=== PATIENT | female | born 1985 | race Caucasian/White ===

== ENCOUNTER 2022-07-12 14:39 | Emergency (ER) | payer MEDICAID ==
[~2022-07-12] VITALS: Ht 157.5 cm; Wt 65.0 kg
[2022-07-12 14:46] VITALS: BP 106/84
[2022-07-12] MEDS ORDERED: CEPH-585 PO ×2 (15:54→15:57)
[2022-07-12] MEDS ORDERED: cephalexin 250mg capsule PO ONE (16:00)
== END 2022-07-12 16:13 | disposition home or self-care (01) ==
LOC: ER 14:40
DX: L02.415 Cutaneous abscess of right lower limb (principal); M25.551 Pain in right hip; Z72.89 Other problems related to lifestyle; Z56.0 Unemployment, unspecified; Z79.2 Long term (current) use of antibiotics
CPT/HCPCS: 99283

== ENCOUNTER 2022-07-31 10:08 | Emergency (ER) | payer MEDICAID ==
[~2022-07-31] VITALS: Ht 158.8 cm; Wt 67.4 kg
[~2022-07-31 10:08] MED LIST: CEPH-585 PO
[2022-07-31 10:29] VITALS: BP 123/96
[2022-07-31 11:47] LABS: CLARITY,URINE CLEAR (Clear); COLOR,URINE YELLOW (Yellow); GLUCOSE, URINE NEGATIVE (Neg); KETONES,URINE NEGATIVE (Neg); LEUKOCYTE ESTERASE ,URINE TRACE (Neg); NITRITES, URINE NEGATIVE (Neg); OCCULT BLOOD,URINE NEGATIVE (Neg); PROTEIN,URINE NEGATIVE (Neg); URINE HCG NEGATIVE (NEG); UROBILINOGEN,URINE 0.2 E.U/dL (0.2-1.0)
[2022-07-31 11:51] LABS: UA COLLECTION TYPE CLN CATCH MIDSTREAM
[2022-07-31 11:52] LABS: RBC,URINE NONE SEEN /HPF (0-2); WBC,URINE 0-4 /HPF (0-4)
[2022-07-31 11:53] LABS: BACTERIA,URINE FEW /HPF (Neg); MUCUS STRANDS NONE SEEN /LPF (Neg); SQUAMOUS EPITHELIAL CELL,UR FEW /LPF (FEW)
[2022-07-31 12:00] LABS: BASOPHILS % (AUTO) 0.8 % (0-1); EOSINOPHILS # (AUTO) 0.1 X10'3 (0-0.9); EOSINOPHILS % (AUTO) 2.8 % (0-6); HEMATOCRIT 40.7 % (35.0-45.0); HEMOGLOBIN 13.6 g/dl (12.0-16.0); LYMPHOCYTES # (AUTO) 2.1 X10'3 (1.1-4.8); LYMPHOCYTES % (AUTO) 38.9 % (21-51); MEAN CORPUSCULAR HEMOGLOBIN 29.1 PG (27.0-31.0); MEAN CORPUSCULAR HGB CONC 33.3 g/dL (33.0-36.5); MEAN CORPUSCULAR VOLUME 87.6 FL (78-98); MEAN PLATELET VOLUME 6.4 FL (7.4-10.4); MONOCYTES # (AUTO) 0.4 X10'3 (0-0.9); MONOCYTES % (AUTO) 6.8 % (2-12); NEUTROPHILS # (AUTO) 2.7 X10'3 (1.8-7.7); NEUTROPHILS % (AUTO) 50.7 % (42-75); PLATELET COUNT 323 X10'3 (140-440); RED BLOOD COUNT 4.65 X10'6 (4.20-5.60); RED CELL DISTRIBUTION WIDTH 13.5 % (11.5-14.5); WHITE BLOOD COUNT 5.4 X10'3 (4.5-11.0)
[2022-07-31 12:10] LABS: ALANINE AMINOTRANSFERASE 36 U/L (12-78); ALBUMIN 3.8 G/DL (3.4-5.0); ALKALINE PHOSPHATASE 106 IU/L (46-116); ANION GAP 5 (8-16); ASPARTATE AMINO TRANSFERASE 21 U/L (10-37); BILIRUBIN,TOTAL 0.3 MG/DL (0.1-1.0); BLOOD UREA NITROGEN 14 MG/DL (7-18); BUN/CREATININE RATIO 21.2 (6.6-38.0); CALCIUM 9.2 MG/DL (8.5-10.1); CHLORIDE 104 MMOL/L (99-107); CREATININE 0.66 MG/DL (0.40-0.90); GLUCOSE 94 MG/DL (70-104); POTASSIUM 4.5 MMOL/L (3.5-5.1); SODIUM 139 MMOL/L (135-145); TOTAL CARBON DIOXIDE 29.9 MMOL/L (24-32); TOTAL PROTEIN 7.8 G/DL (6.4-8.2); eGFR > 90 ML/MIN
[2022-07-31] MEDS ORDERED: POLY17PO10 PO (12:56)
== END 2022-07-31 12:53 | disposition home or self-care (01) ==
LOC: ER 10:09
DX: K59.00 Constipation, unspecified (principal); R10.9 Unspecified abdominal pain; Z56.0 Unemployment, unspecified
CPT/HCPCS: 36415; 74176; 80053; 81001; 81025; 85025; 87088; 99284

== ENCOUNTER 2025-01-26 10:15 | Emergency (ER) | payer MEDICAID ==
[~2025-01-26] VITALS: Ht 157.5 cm; Wt 64.5 kg
[2025-01-26 10:23] VITALS: TEMP 97.6
--- NOTE | 2025-01-26 10:28 | Physician Documentation ---
History of Present Illness ~ Chief Complaint: STD Stated Complaint: SYPHILIS Time Seen by MD: 10:40 Primary Medical Doctor: NONE HPI 39-year-old female presents to the ED with a complaint of testing positive for syphilis. She is aware of who the carrier was we will also presents to the ED today. reports vag discharge Day of Onset: January 26, 2025 Medication Reconciliation Allergies: Coded Allergies: No Known Allergies (Unverified , 01/26/25) Scheduled Cephalexin*Monohydrate* (Keflex*), 1 CAP PO TID Past Medical History Past Medical History: No Pertinent History Past Surgical History: no surgical history Alcohol Use: Sober Lives In: Other Occupation: unemployed Past Social History: Sober Review of Systems All Other Systems at this time: Reviewed and Negative ROS The note accurately reflects work and decisions made by me.Raphael Smith - [employer] 01/26/25 10:27 Physical Exam Vital Signs: Temperature: 97.6, Source: Temporal, Heart Rate: 79, Respiratory Rate: 18, BP: 135/103, Pulse Oximetry: 100, Weight: 64.550 Physical Exam General: Alert, no apparent distress. genitourniary: Deferred Psychiatric: Normal mood and affect. Skin: Normal color, warm and dry. No edema, no ecchymosis. Progress Results/Orders Results/Orders Completed Orders - RAPHAEL SMITH NP Penicillin G Benzathine (Bicillin L-A) (01/26/25 10:30) Diphenhydramine Capsule (Benadryl Capsul (01/26/25 11:25) Medications Received in ER Medications (Trade) Dose Ordered Sig/Krystian Route PRN Reason Start Time Stop Time Status Last Admin Dose Admin (Bicillin L-A) 2,400,000 unit ONCE ONCE IM 01/26/25 10:30 01/26/25 10:35 DC 01/26/25 10:57 2,400,000 UNIT (Benadryl capsule) 50 mg ONCE ONCE PO 01/26/25 11:25 01/26/25 11:26 DC 01/26/25 11:38 50 MG Vital Signs 01/26/25 01/26/25 01/26/25 01/26/25 10:23 11:09 11:29 11:40 Temp 97.6 Pulse 79 76 73 Resp 18 15 15 15 B/P (MAP) 135/103 139/95 (110) 116/90 Pulse Ox 100 99 99 Medical Decision Making Findings Based on patient's testing positive in the outpatient setting for syphilis some treating her empirically in the ED via penicillin G Urinary Diff Dx:Considerations: Include: AAA, , Aortic dissection, Appendicitis, Bowel obstruction, Cholelithiasis, Choleangitis, DJD, Ectopic , Hepatitis, HNP, Impaction, Intrauterine , Musculoskeletal pain, Ovarian torsion, Pancreatitis, PID, Post-Op complication, Pyelonephritis, Renal failure, Strain, Urinary Obstruction, Urolithiasis, Urinary retention, UTI, Vaginitis, Other Departure Disposition: HOME / SELF CARE / HOMELESS Impression: Primary Impression: Sexually transmitted disease Condition: Stable Discharge Instructions: Syphilis Test, Sexually Transmitted Disease Referrals: NO PRIMARY CARE PROVIDER (PCP) Signature Scribe Signature: y Attestation: The note accurately reflects work and decisions made by me.Raphael Huerta NP 01/26/25 16:24 RAPHAEL SMITH NP January 26, 2025 10:28
[2025-01-26] MEDS: PENICILLIN G BENZATHINE 2,400,000 UNIT/4 ML SYRINGE IM ONE (10:57)
[2025-01-26] MEDS: diphenhydrAMINE 25mg capsule PO ONE (11:38)
[2025-01-26 11:40] VITALS: BP 116/90; PULSE 73; RESP 15; O2SAT 99
== END 2025-01-26 11:12 | disposition home or self-care (01) ==
LOC: ER 10:16
DX: A64 Unspecified sexually transmitted disease (principal); F10.90 Alcohol use, unspecified, uncomplicated; Y90.9 Presence of alcohol in blood, level not specified
CPT/HCPCS: 96372; 99283; J0561; Q0163

== ENCOUNTER 2025-03-16 13:42 | Emergency (ER) | payer MEDICAID ==
[~2025-03-16] VITALS: Ht 158.8 cm; Wt 67.3 kg
[2025-03-16 13:52] VITALS: BP 128/90; PULSE 100; RESP 18; O2SAT 98
[2025-03-16] MEDS ORDERED: CEPH-585 PO (15:07)
--- NOTE | 2025-03-16 15:07 | Physician Documentation ---
History of Present Illness ~ Chief Complaint: Abscess Stated Complaint: ABSCESS Time Seen by MD: 14:09 Primary Medical Doctor: NONE HPI This is a 39-year-old female who presents with an area of pain and redness to her right lower back present and worsening for the past week, patient reports no fevers or other systemic symptoms. Patient reports no drainage from the area. Patient reports no other acute symptoms or concerns. Tetanus Within 5 Years: No Medication Reconciliation Allergies: Coded Allergies: No Known Allergies (Unverified , 01/26/25) Scheduled Cephalexin*Monohydrate* (Keflex*), 1 CAP PO TID Cephalexin*Monohydrate* (Keflex*), 1 CAP PO QID Past Medical History Past Medical History: No Pertinent History Past Surgical History: no surgical history Alcohol Use: Sober Lives In: Other Occupation: unemployed Past Social History: Sober Review of Systems ROS Redness and pain to right lower back as stated above in the HPI, otherwise all systems are reviewed and negative. Physical Exam Vital Signs: Temperature: 98.8, Source: Temporal, Heart Rate: 100, Respiratory Rate: 18, BP: 128/90, Pulse Oximetry: 98, Weight: 67.270 Oxygen Flow Rate: 0 Physical Exam VITALS: Reviewed and as above. GENERAL: Alert, nontoxic appearing, no apparent distress. RESPIRATORY: No increased work of breathing, no respiratory distress, speaking in full clear sentences SKIN: 3 cm x 4 cm erythematous indurated area to right lower back, no fluctuance Progress Results/Orders Results/Orders Vital Signs 03/16/25 03/16/25 13:52 15:16 Temp 98.8 98.8 Pulse 100 Resp 18 B/P (MAP) 128/90 Pulse Ox 98 O2 Flow Rate 0 Medical Decision Making Findings This otherwise healthy and well appearing 39-year-old female presents with pain and redness to right lower back, physical exam notable for erythema, induration and tenderness to the area consistent with uncomplicated cellulitis. History is reassuring as patient reports no fever, chills, or other systemic symptoms. There is no evidence of rapidly progressing symptoms, crepitus, pain out of proportion, pain away from site or other signs/symptoms concerning for necrotizing fasciitis, myositis, or other deep tissue infection. I considered other high-risk diagnoses such as acute osteomyelitis, deep space abscess, septic joint, foreign body, or deep vein thrombosis or septic phlebitis. Physical exam is otherwise benign, patient is non-toxic and well-appearing, afebrile, and hemodynamically stable. Patient is appropriate for outpatient follow up and discharged on course of oral antibiotics. Patient given strict return precautions including rapidly progressing symptoms, pain out of proportion/severe pain, mucosal involvement, and/or fever > 100.4. Differential Dx:Considerations: Include: Abscess, Bacteremia, Erysipelas, Lymphangitis, Osteromyelitis, Septicemia Departure Disposition: HOME / SELF CARE / HOMELESS Impression: Primary Impression: Cellulitis Qualified Codes: L03.312 - Cellulitis of back [any part except buttock] Condition: Improved Discharge Instructions: Cellulitis, Adult, [id number] Additional Instructions: Keep the area clean dry and covered. Please take the antibiotics as prescribed. Please follow up with your primary care provider in the next few days for a recheck of the area. Please return to the emergency department for any new or worsening concerning symptoms including but not limited to spreading of the pain and swelling or if you develop a fever over 100.4. Referrals: NO PRIMARY CARE PROVIDER (PCP) Prescriptions Cephalexin*Monohydrate* (Keflex*) 500 Mg Capsule 1 CAP PO QID for 5 Days, #20 CAP Prov: JIMI JONES 03/16/25 Education Educated: Patient Educated regarding: diagnosis, treatment, prognosis, need for follow up Signature Scribe Signature: No scribe Attestation: The note accurately reflects work and decisions made by me.SYLVIA Joyce 03/16/25 20:28 JIMI JONES Mar 16, 2025 15:07
[2025-03-16 15:16] VITALS: TEMP 98.8
== END 2025-03-16 15:17 | disposition home or self-care (01) ==
LOC: ER 13:42
DX: L03.312 Cellulitis of back [any part except buttock and flank] (principal)
CPT/HCPCS: 99283

== ENCOUNTER 2025-06-01 09:04 | Emergency (ER) | payer MEDICAID ==
[~2025-06-01] VITALS: Ht 157.5 cm; Wt 73.6 kg
[2025-06-01 09:12] VITALS: TEMP 97.4
--- NOTE | 2025-06-01 10:00 | Physician Documentation ---
History of Present Illness ~ Chief Complaint: Bite-insect Stated Complaint: HAND PAIN AND COLD SYMPTOMS Time Seen by MD: 09:22 Primary Medical Doctor: NONE HPI Patient is seen today with complaints of pain of her right hand on the ulnar aspect of the dorsum after or she states she was bit by meat be a couple of days ago. Patient states the swelling and redness have actually decreased but she states it is still very painful and swollen was concerned for infection. She denies any chest pain or abdominal pain or nausea, vomiting, diarrhea. Patient actually states that her main complaint today are symptoms of body aches fever chills, cough and cold-like symptoms with runny nose and sore throat. Patient admits to history of asthma. She also admits to sick contacts of her boyfriend and other roommates being sick with COVID-19. Patient has no other concern or complaint at this time. Tetanus within 5 years?: No Medication Reconciliation Allergies: Coded Allergies: No Known Allergies (Unverified , 01/26/25) Scheduled Cephalexin*Monohydrate* (Keflex*), 1 CAP PO TID Cephalexin*Monohydrate* (Keflex*), 1 CAP PO Q8H Past Medical History Past Medical History: No Pertinent History Past Surgical History: no surgical history Alcohol Use: Sober Lives In: Other Occupation: unemployed Past Social History: Sober Physical Exam Vital Signs: Temperature: 97.4, Source: Temporal, Heart Rate: 90, Respiratory Rate: 16, BP: 118/89, Pulse Oximetry: 97, Weight: 73.600 Oxygen Flow Rate: 0 Physical Exam General: Awake and Alert, no acute distress. HEENT: Conjunctiva pink, Sclera clear, Mucus Membranes moist. Neck: Supple without masses and tenderness. Resp: Unlabored. Patient on auscultation does have expiratory wheeze throughout all lung poole. She is able to move air well, I do not appreciate any rales, rhonchi, coarse breath sounds. Musculoskeletal: Patient on exam does have an area of erythema and swelling with induration approximately 4 cm in diameter in the dorsum of her right hand ulnar aspect that is tender to palpation. I do not appreciate any fluctuant mass. Extremities: No cyanosis,clubbing or edema. Skin: Warm and Dry. Progress Results/Orders Results/Orders Completed Orders - ALESSANDRO CASE PAC Cephalexin Capsule (Keflex Capsule) (06/01/25 10:51) Ibuprofen Tablet (Motrin Tablet) (06/01/25 10:51) Acetaminophen 325mg Tablet (Tylenol Tabl (06/01/25 10:51) Vital Signs 06/01/25 09:12 Temp 97.4 Pulse 90 Resp 16 B/P (MAP) 118/89 Pulse Ox 97 O2 Flow Rate 0 Laboratory Tests Test 06/01/25 09:20 Medical Decision Making Findings Patient is seen today with complaints of pain of her right hand on the ulnar aspect of the dorsum after or she states she was bit by meat be a couple of days ago. Patient states the swelling and redness have actually decreased but she states it is still very painful and swollen was concerned for infection. She denies any chest pain or abdominal pain or nausea, vomiting, diarrhea. Patient actually states that her main complaint today are symptoms of body aches fever chills, cough and cold-like symptoms with runny nose and sore throat. Patient admits to history of asthma. She also admits to sick contacts of her boyfriend and other roommates being sick with COVID-19. Patient has no other concern or complaint at this time. Patient did have positive COVID test in the ED today. Patient will continue with symptomatic treatment with Tylenol and ibuprofen at max doses and increase rest and fluids and will be given note for work. Patient was given prescription for Keflex 500 mg one tab 3 times a day for 10 days sent to patient pharmacy to be started immediately. Patient will follow up with primary care in 2-3 days if no better as needed sooner. Or return to ED with any worsening, concerning or changing symptoms. Departure Disposition: 01 HOME / SELF CARE / HOMELESS Impression: Primary Impression: Cellulitis Qualified Codes: L03.113 - Cellulitis of right upper limb Additional Impression: Insect bites Qualified Codes: S60.561A - Insect bite (nonvenomous) of right hand, initial encounter; W57.XXXA - Bitten or stung by nonvenomous insect and other nonvenomous arthropods, initial encounter Condition: Stable Discharge Instructions: Cellulitis, Adult, Insect Bite, Adult, [id number] Additional Instructions: Patient was given prescription for Keflex 500 mg one tab 3 times a day for 10 days sent to patient pharmacy to be started immediately. Patient will follow up with primary care in 2-3 days if no better as needed sooner. Or return to ED with any worsening, concerning or changing symptoms. Departure Forms: Excuse form Work or School Excused From: Work Excuse beginning now through the following date: Jun 04, 2025 Referrals: NO PRIMARY CARE PROVIDER (PCP) Prescriptions Cephalexin*Monohydrate* (Keflex*) 500 Mg Capsule 1 CAP PO Q8H for 10 Days, #30 CAP Prov: ALESSANDRO CASE PAC 06/01/25 Signature Scribe Signature: No scribe Attestation: No scribe ALESSANDRO CASE PAC Jun 01, 2025 09:59
[2025-06-01] MEDS ORDERED: CEPH-585 PO (10:31)
[2025-06-01] MEDS: ibuprofen tablet 400 MG TABLET PO STA (11:06)
[2025-06-01 11:33] VITALS: BP 119/97; PULSE 89; RESP 20; O2SAT 99
== END 2025-06-01 11:36 | disposition home or self-care (01) ==
LOC: ER 09:05
DX: L03.113 Cellulitis of right upper limb (principal); S60.561A Insect bite (nonvenomous) of right hand, initial encounter; J45.909 Unspecified asthma, uncomplicated; Z56.0 Unemployment, unspecified; Z20.822 Contact with and (suspected) exposure to COVID-19; W57.XXXA Bitten or stung by nonvenomous insect and other nonvenomous arthropods, initial encounter; Y93.89 Activity, other specified; Y92.89 Other specified places as the place of occurrence of the external cause; Y99.8 Other external cause status
CPT/HCPCS: 36415; 87811; 99284